=== PATIENT | male | born 2005 | race Two or more races ===

== ENCOUNTER 2024-11-19 13:11 | Inpatient (IN) | payer OTHER ==
[~2024-11-19] VITALS: Ht 182.9 cm; Wt 51567.8 kg
[2024-11-19 13:13] VITALS: O2SAT 98
[2024-11-19] MEDS: NALOXONE HCL 0.4MG/ML 1ML VIAL IV ONE (13:49)
[2024-11-19] MEDS: SODIUM CHLORIDE 0.9% 1,000 ML IV ONE (13:49)
[2024-11-19 14:21] LABS: BASOPHILS % 0.9 % (0.0-2.0); EOSINOPHILS % 1.8 % (0.0-5.0); HEMATOCRIT. 37.4 % (42.0-52.0); HEMOGLOBIN. 13.1 g/dL (14.0-18.0); LYMPHOCYTES % 22.8 % (20.0-50.0); MEAN CORPUSCULAR HEMOGLOBIN 31.9 pg (28.0-32.0); MEAN CORPUSCULAR HGB CONC 35.1 g/dL (31.0-37.0); MEAN CORPUSCULAR VOLUME 90.7 fL (80.0-94.0); MEAN PLATELET VOLUME 8.7 fl (7.4-10.4); MONOCYTES % 8.9 % (2.0-8.0); NEUTROPHILS % 65.6 % (40.0-76.0); PLATELET 239 x1000/uL (130-400); RED BLOOD CELL COUNT 4.13 mill/uL (4.7-6.1); RED CELL DISTRIBUTION WIDTH 12.8 % (11.6-14.6); WHITE BLOOD COUNT 5.5 x1000/uL (4.5-11.0)
[2024-11-19 14:22] LABS: CLARITY URINE CLEAR (CLEAR); COLOR URINE YELLOW (YELLOW); GLUCOSE URINE NEGATIVE (NEGATIVE); KETONES URINE NEGATIVE (NEGATIVE); LEUKOCYTE ESTERASE URINE NEGATIVE (NEGATIVE); NITRITE URINE NEGATIVE (NEGATIVE); OCCULT BLOOD URINE NEGATIVE (NEGATIVE); PROTEIN URINE NEGATIVE (NEGATIVE); SPECIFIC GRAVITY URINE 1.025 (1.005-1.030); UROBILINOGEN URINE 0.2 E.U./dL (0.2-1.0)
[2024-11-19 14:25] LABS: CHLORIDE 112 mEq/L (98-107); POTASSIUM 3.2 mEq/L (3.5-5.1); SODIUM 145 mEq/L (136-145)
[2024-11-19 14:26] LABS: CALCIUM 8.9 mg/dL (8.7-10.4); CARBON DIOXIDE 25 mEq/L (21-32)
[2024-11-19 14:31] LABS: GLUCOSE 77 mg/dL (70-105); UREA NITROGEN BLOOD 14 mg/dL (9-23)
[2024-11-19 14:33] LABS: ACETAMINOPHEN < 2 ug/mL (10-30)
[2024-11-19 14:36] LABS: TROPONIN I HIGH SENSITIVITY < 4 ng/L (3.0-53)
[2024-11-19 14:37] LABS: ETHANOL BLOOD < 10 mg/dL (<10)
[2024-11-19 14:40] LABS: *AMPHETAMINES SCREEN URINE NEGATIVE (NEGATIVE); *BARBITURATES SCREEN URINE NEGATIVE (NEGATIVE); *BENZODIAZEPINES SCREEN URINE PRESUMPTIVE POSITIVE (NEGATIVE); *COCAINE SCREEN URINE NEGATIVE (NEGATIVE); METHADONE URINE SCREEN NEGATIVE (NEGATIVE)
[2024-11-19 14:41] LABS: CANNABINOID URINE SCREEN PRESUMPTIVE POSITIVE (NEGATIVE); ECSTASY MDMA SCREEN URINE NEGATIVE (NEGATIVE); OPIATES URINE SCREEN PRESUMPTIVE POSITIVE (NEGATIVE); PHENCYCLIDINE URINE SCREEN PRESUMTIVE POSITIVE (NEGATIVE)
[2024-11-19] MEDS: NALOXONE HCL 1MG/ML 2ML VIAL IV ONE (14:51)
[2024-11-19] MEDS: HALOPERIDOL LACTATE 5MG/ML VIAL IM ONE (21:40)
[2024-11-19] MEDS: DIPHENHYDRAMINE 50MG/ML VIAL IM ONE (21:40)
[2024-11-19 22:46] VITALS: BP 115/64; PULSE 72; RESP 20; TEMP 36.78072; O2SAT 99
[2024-11-19] MEDS ORDERED: DIPHENHYDRAMINE 50MG/ML VIAL IV PRN (23:45)
[2024-11-19] MEDS ORDERED: ACETAMINOPHEN 325MG TABLET PO PRN (23:45)
[2024-11-20] VITALS: BP 125/69; PULSE 80; RESP 20; TEMP 36.55848; TEMP 36.5848; O2SAT 98
[2024-11-20] MEDS: POTASSIUM CHLORIDE 20MEQ TABLET SR PO NR (00:34)
[2024-11-20] MEDS: SODIUM CHLORIDE 0.9% 1,000 ML IV SCH (00:34)
[2024-11-20] MEDS: MVI, ADULT NO.1 10 ML, FOLIC ACID 1 MG, THIAMINE HCL 100 MG in SODIUM CHLORIDE 0.9% 1,0... IV SCH (01:49)
[2024-11-20 04:00] VITALS: BP 111/65; PULSE 75; RESP 20; TEMP 36.50292; O2SAT 98
[2024-11-20 05:46] LABS: CHLORIDE 111 mEq/L (98-107); POTASSIUM 3.6 mEq/L (3.5-5.1); SODIUM 144 mEq/L (136-145)
[2024-11-20 05:50] LABS: CARBON DIOXIDE 28 mEq/L (21-32)
[2024-11-20 05:51] LABS: CALCIUM 8.8 mg/dL (8.7-10.4)
[2024-11-20 05:54] LABS: UREA NITROGEN BLOOD 9 mg/dL (9-23)
[2024-11-20 05:55] LABS: CREATININE 0.8 mg/dL (0.6-1.3)
[2024-11-20 05:56] LABS: GLUCOSE 88 mg/dL (70-105)
[2024-11-20 05:57] LABS: ALANINE AMINOTRANSFERASE 9 IU/L (10-49); ASPARTATE AMINOTRANSFERASE 21 IU/L (<34)
[2024-11-20 05:58] LABS: BILIRUBIN DIRECT 0.3 mg/dL (<=3.0); BILIRUBIN TOTAL 0.9 mg/dL (0.1-1.0); PHOSPHORUS 2.4 mg/dL (2.5-4.9); PROTEIN TOTAL 6.2 g/dL (6.0-8.3)
[2024-11-20 06:43] LABS: BASOPHILS % 0.4 % (0.0-2.0); EOSINOPHILS % 1.3 % (0.0-5.0); HEMATOCRIT. 36.3 % (42.0-52.0); HEMOGLOBIN. 12.7 g/dL (14.0-18.0); MEAN CORPUSCULAR HEMOGLOBIN 31.9 pg (28.0-32.0); MEAN CORPUSCULAR VOLUME 91.2 fL (80.0-94.0); MEAN PLATELET VOLUME 8.8 fl (7.4-10.4); MONOCYTES % 9.4 % (2.0-8.0); NEUTROPHILS % 74.9 % (40.0-76.0); PLATELET 216 x1000/uL (130-400); RED BLOOD CELL COUNT 3.97 mill/uL (4.7-6.1); RED CELL DISTRIBUTION WIDTH 12.8 % (11.6-14.6); WHITE BLOOD COUNT 9.8 x1000/uL (4.5-11.0)
[2024-11-20 08:00] VITALS: BP 112/47; PULSE 65; RESP 20; TEMP 36.50292; O2SAT 100
[2024-11-20] MEDS: QUETIAPINE FUMARATE 50MG TABLET PO SCH (11:19)
[2024-11-20 12:00] VITALS: BP 138/97; PULSE 64; RESP 20; TEMP 36.78072; O2SAT 100
[2024-11-20 16:00] VITALS: BP 138/92; PULSE 66; RESP 20; TEMP 36.61404; O2SAT 100
[2024-11-20] MEDS: MAGNESIUM 4 G PREMIX 100 ML IV NR (18:49)
[2024-11-20 20:00] VITALS: BP 98/50; PULSE 90; RESP 20; TEMP 36.3918; O2SAT 99
[2024-11-21] VITALS: BP 101/40; PULSE 89; RESP 20; TEMP 36.33624; O2SAT 9; O2SAT 98
[2024-11-21] MEDS: NICOTINE 7MG PATCH TD NR (01:21)
[2024-11-21 04:00] VITALS: BP 98/55; PULSE 77; RESP 20; TEMP 35.89176; O2SAT 99
[2024-11-21 08:00] VITALS: BP 102/53; PULSE 76; RESP 20; TEMP 36.72516; O2SAT 98
[2024-11-21 08:24] LABS: CHLORIDE 108 mEq/L (98-107); POTASSIUM 3.4 mEq/L (3.5-5.1); SODIUM 141 mEq/L (136-145)
[2024-11-21 08:25] LABS: CALCIUM 8.7 mg/dL (8.7-10.4); CARBON DIOXIDE 24 mEq/L (21-32)
[2024-11-21 08:30] LABS: CREATININE 0.7 mg/dL (0.6-1.3); GLUCOSE 101 mg/dL (70-105); UREA NITROGEN BLOOD 12 mg/dL (9-23)
[2024-11-21 08:32] LABS: PHOSPHORUS 2.9 mg/dL (2.5-4.9)
[2024-11-21] MEDS: ACETAMINOPHEN 325MG TABLET PO PRN (08:57)
[2024-11-21] MEDS: QUETIAPINE FUMARATE 50MG TABLET PO SCH (08:57)
[2024-11-21 12:00] VITALS: BP 109/49; PULSE 82; RESP 20; TEMP 36.61404; O2SAT 98
[2024-11-21] MEDS: ONDANSETRON HCL 4MG/2ML INJ IV PRN (14:09)
[2024-11-21] MEDS: POTASSIUM CHLORIDE 20MEQ TABLET SR PO SCH (14:09)
[2024-11-21] MEDS: NICOTINE 21MG PATCH TD SCH (15:06)
[2024-11-21 16:00] VITALS: BP 115/58; PULSE 70; RESP 20; TEMP 36.61404; O2SAT 98
[2024-11-21 20:00] VITALS: BP 96/35; PULSE 100; RESP 20; TEMP 36.22512; O2SAT 93
== END 2024-11-21 20:43 | disposition left against medical advice (07) | DRG 93 ==
LOC: ER 13:11 → 8WST 18:26
PROVIDERS: ADMIT Internal Medicine; ATTEND Internal Medicine
DX: G92.8 Other toxic encephalopathy (principal); E83.42 Hypomagnesemia; F31.9 Bipolar disorder, unspecified; Z20.822 Contact with and (suspected) exposure to COVID-19; Z53.29 Procedure and treatment not carried out because of patient's decision for other reasons; F41.9 Anxiety disorder, unspecified; F19.10 Other psychoactive substance abuse, uncomplicated; Z91.51 Personal history of suicidal behavior
CPT/HCPCS: 36415; 71045; 80048; 80076; 80305; 80307; 80320; 80329; 81003; 83735; 84100; 84484; 85025; 87426; 93005; 99285; C1893; J1200; J1630; J2310; J2405; J3411; J3475; J3490; J7030; G0480

== ENCOUNTER 2024-11-22 00:58 | Emergency (ER) | payer OTHER ==
[~2024-11-22] VITALS: Ht 175.3 cm; Wt 91.0 kg
[2024-11-22 01:19] VITALS: O2SAT 97
[2024-11-22 02:43] LABS: CARBON DIOXIDE 24 mEq/L (21-32); CHLORIDE 108 mEq/L (98-107); POTASSIUM 3.6 mEq/L (3.5-5.1); SODIUM 141 mEq/L (136-145)
[2024-11-22 02:44] LABS: CALCIUM 9.6 mg/dL (8.7-10.4)
[2024-11-22 02:49] LABS: CREATININE 0.9 mg/dL (0.6-1.3); GLUCOSE 94 mg/dL (70-105); UREA NITROGEN BLOOD 12 mg/dL (9-23)
[2024-11-22] MEDS: QUETIAPINE FUMARATE 50MG TABLET PO SCH (02:50)
[2024-11-22 02:52] VITALS: BP 108/61; PULSE 74; RESP 15; TEMP 36.78072; O2SAT 100
[2024-11-22 03:00] LABS: BASOPHILS % 0.5 % (0.0-2.0); EOSINOPHILS % 1.1 % (0.0-5.0); HEMATOCRIT. 39.4 % (42.0-52.0); HEMOGLOBIN. 13.9 g/dL (14.0-18.0); MEAN CORPUSCULAR HEMOGLOBIN 31.9 pg (28.0-32.0); MEAN CORPUSCULAR HGB CONC 35.3 g/dL (31.0-37.0); MEAN CORPUSCULAR VOLUME 90.3 fL (80.0-94.0); MEAN PLATELET VOLUME 8.8 fl (7.4-10.4); MONOCYTES % 7.4 % (2.0-8.0); PLATELET 264 x1000/uL (130-400); RED BLOOD CELL COUNT 4.37 mill/uL (4.7-6.1); RED CELL DISTRIBUTION WIDTH 12.8 % (11.6-14.6); WHITE BLOOD COUNT 10.3 x1000/uL (4.5-11.0)
== END 2024-11-22 02:53 | disposition home or self-care (01) ==
LOC: ER 00:58
DX: R42 Dizziness and giddiness (principal); R07.89 Other chest pain; F20.9 Schizophrenia, unspecified; F41.9 Anxiety disorder, unspecified; F32.A Depression, unspecified
CPT/HCPCS: 80048; 85025; 36415; 71045; 93005; 99285; Z7610